=== PATIENT | male | born 1960 | race Caucasian/White ===

== ENCOUNTER 2016-09-01 10:39 | Inpatient (IN) ==
[2016-09-01] MEDS ORDERED: ASPIRIN PO STA (11:04)
--- NOTE | 2016-09-01 11:36 | EKG Report ---
Test Performed on : 09/01/2016 10:46:47 AM Test Reason : cp Blood Pressure : / mmHG Vent. Rate : 110 BPM Atrial Rate : 110 BPM P-R Int : 130 ms QRS Dur : 082 ms QT Int : 326 ms P-R-T Axes : 054 057 -19 degrees QTc Int : 441 ms Sinus tachycardia. Possible Left atrial enlargement T wave abnormality, consider inferior ischemia Abnormal ECG When compared with ECG of 22-OCT-2015 07:28, ST no longer elevated in Anterior leads Inverted T waves have replaced nonspecific T wave abnormality in Inferior leads T wave amplitude has decreased in Anterior leads Unconfirmed Result
[2016-09-01 12:09] LABS: MANUAL DIFF NEEDED? NO
--- NOTE | 2016-09-01 12:09 | Diag Imaging Result Document ---
PROCEDURE NAME: CHEST-PORTABLE - 09/01/2016 PORTABLE CHEST: COMPARISON: 03/15/2011. FINDINGS: Sternal wires are present. There is increased density along the left heart border. The right lung is well expanded and clear. The vessels are not distended. No pleural effusion is identified. IMPRESSION: I believe there is an infiltrate in the lingular segment of the left upper lobe.
[2016-09-01 12:35] LABS: AGAP 14; ALBUMIN 3.9 g/dL (3.5-5.0); ALKALINE PHOSPHATASE 76 U/L (32-122); BUN 19 mg/dL (8-22); CALCIUM 9.3 mg/dL (8.8-10.2); CHLORIDE 105 mmol/L (98-107); CK PROFILE 50 U/L (24-204); COSMO 281; GOT 31 U/L (10-34); GPT 28 U/L (10-44); MAGNESIUM 2.1 mg/dL (1.5-2.7); SODIUM 140 mmol/L (136-145); TCO2 21 mmol/L (25-35); TOTAL BILIRUBIN 0.23 mg/dL (0.20-1.00); TOTAL PROTEIN 7.2 g/dL (6.3-8.3)
[2016-09-01 12:42] LABS: BASO% 0.4 % (0.0-0.8); EOS# 0.29 X1000 (0.0-0.7); EOS% 3.2 % (0.0-10.0); HEMATOCRIT 41.5 % (42.0-52.0); HEMOGLOBIN 14.1 g/dL (14.0-18.0); LYMPH# 4.14 X1000 (1.2-3.4); LYMPH% 45.6 % (20.5-51.1); MCV 94.1 FL (81-99); MONO# 1.11 X1000 (0.11-0.59); MONO% 12.2 % (1.7-9.3); MPV 10.1 FL (7.4-10.4); NEUT% 38.6 % (42.2-75.2); PLT 289 X1000 (130-400); RBC 4.41 XMIL (4.7-6.1)
[2016-09-01] MEDS ORDERED: LEVAQUIN PO ONE (13:24)
[2016-09-01] MEDS ORDERED: ROCEPHIN 2 GM/NS 2 GM/50 ML IVPB IV ONE (13:24)
[2016-09-01 14:30] LABS: INR 1.02; PROTIME 10.7 Seconds (9.2-11.7); PTT 25.9 Seconds (22.0-36.0)
[2016-09-01] MEDS ORDERED: LABETALOL IV ONE (15:51)
[2016-09-01] MEDS ORDERED: LABETALOL ONE (15:52)
--- NOTE | 2016-09-01 16:33 | PROVIDER DOCUMENTATION ---
This chart was entered by Darrin Marino Scribe, acting as scribe for Shelton Garner MD. HPI-Chest Pain - General Chief Complaint: Chest Pain Stated Complaint: CHEST HEAVINESS,SOB Time Seen by Provider: 09/01/16 10:45 Source: patient Allergies/Adverse Reactions: Patient Allergies Allergy/AdvReac Type Severity Reaction Status Date / Time pregabalin [From Lyrica] AdvReac Intermediate Unknown Verified 09/01/16 11:07 Home Medications: Home Medication List Medication Instructions Recorded Confirmed Last Taken Type Alprazolam [Xanax] 1 mg PO 3-4XDAY PRN PRN 01/20/12 09/01/16 08/31/16 22:00 History 1mg Oxycodone/APAP 10 mg/325 mg 10 mg PO Q6H PRN PRN 01/20/12 09/01/16 09/01/16 10: 30 History [Percocet-10] 10 MG Tizanidine HCl [Zanaflex] 4 mg PO BID 09/18/14 09/01/16 09/01/16 06:30 History 4 MG Aspirin 81 mg PO DAILY 10/22/15 09/01/16 08/25/16 History 81 mg Docusate Sodium [Colace] 100 mg PO BID 02/27/16 09/01/16 09/01/16 06:30 History 100 MG Metoprolol Tartrate 25 mg PO BID 02/27/16 09/01/16 09/01/16 06:30 History 25 MG Tamsulosin [Flomax] 0.4 mg PO QHS 02/27/16 09/01/16 09/01/16 06:30 History 0.4 MG - History of Present Illness-CP Nature of Presenting Problem: patient is a 55 y/o M that presents to the ER with chest pain. Patient's symptoms began 3 days ago in which he describes pressure type feeling. He has shortness of breath with it but denies N/V, diaphoresis, or back pain. Symptoms are improving today. Had by-pass and heart valve replacement since 2015. patient had cervical spine injections last week and stopped ASA due to surgeon request. Location: reports: central Chest Pain Radiation: reports: no radiation Quality of Pain: reports: tightness Severity in ED: moderate Onset/Duration: abrupt, 3 days ago Timing: still present, improving Context/Activities at Onset: reports: none Modifying Factors: improves with: nothing Associated Symptoms: reports: shortness of breath. denies: abdominal pain, back pain, diaphoresis, dizziness, fever/chills, nausea, vomiting Aspirin Treatment Today: 325 mg x 1, provided by ED Prior Chest Pain/Cardiac Workup: reports: other (last december had bypass and heart valve replacement) Similar Symptoms Previously?: Yes Recently Seen Here or By Another Healthcare Provider: No Review of Systems - Adult - REVIEW OF SYSTEMS - ADULT Constitutional: denies: chills, fever Eyes: reports: no symptoms reported Ears, Nose, Mouth & Throat: reports: no symptoms reported Cardiovascular: reports: chest pain. denies: palpitations, syncope Respiratory: reports: shortness of breath. denies: cough, wheezing Gastrointestinal: denies: abdominal pain, diarrhea, nausea, vomiting Genitourinary: reports: no symptoms reported Musculoskeletal: denies: joint pain, joint swelling, muscle aches Integumentary: reports: no symptoms reported Neurological: denies: dizziness/vertigo, headache/migraines, seizure, syncope Psychiatric: reports: no symptoms reported Endocrine: reports: no symptoms reported Hematologic/Lymphatic: reports: no symptoms reported Allergic/Immunologic: reports: no symptoms reported All Other Systems: Reviewed and Negative Past History - Adult - PAST MEDICAL HISTORY-ADULT Review of Records: reports: Old Records Reviewed, Nursing Assessment Review, Medications Reviewed Cardiovascular: reports: CAD, HTN, heart valve problem Musculoskeletal: reports: chronic pain Psychiatric: reports: anxiety Endocrine/Immune: reports: Lymphoma (Hodgkins ( 80s)) - PRIOR SURGERIES/PROCEDURES Surgical/Procedure History: reports: CABG, cholecystectomy, bowel surgery ( colon resection) - IMMUNIZATION STATUS Childhood Immunizations: See Nurse Assessment Flu Vaccine: See Nurse Assessment - SOCIAL HISTORY Smoking: non-smoker Living Situation: family Physical Exam-General - PHYSICAL EXAM-ADULT Initial Vital Signs Reviewed: Yes - CONSTITUTIONAL General Appearance: alert, no apparent distress - EYES Eyes: PERRL/EOMI, pink conjunctivae - HEAD, EARS, NOSE, MOUTH & THROAT HENMT: normocephalic/atraumatic, moist mucous membranes, normal ENT inspection - NECK Neck: full range of motion, normal inspection - RESPIRATORY Respiratory: lungs clear, normal breath sounds, no respiratory distress, no accessory muscle use - CARDIOVASCULAR Cardiovascular: no gallop, no JVD, tachycardia - GASTROINTESTINAL (ABDOMEN) Abdominal Exam: normal bowel sounds, non tender, soft, no organomegaly, no pulsatile mass - MUSCULOSKELETAL Extremity: normal range of motion, normal inspection, no pedal edema, no calf tenderness, normal capillary refill - SKIN Integumentary: normal color, warm/dry - NEUROLOGIC Neurologic: grossly normal, no motor/sensory deficits - PSYCHIATRIC Psych/Mental Status: normal mood/affect, normal thought content, normal thought process, oriented x 3 Progress - PLAN OF CARE/RESULTS Progress/Plan/Lab Results: Vital Signs - 8 hr 09/01/16 10:55 09/01/16 15:28 09/01/16 15:50 Temperature 97.5 F L 98.4 F Pulse Rate 110 H 101 H Respiratory Rate 18 16 Blood Pressure 151/85 180/98 189/116 O2 Sat by Pulse Oximetry 97 97 Laboratory Results - last 24 hr 09/01/16 09/01/16 09/01/16 11:46 11:46 11:46 WBC 9.08 RBC 4.41 L Hgb 14.1 Hct 41.5 L MCV 94.1 MCH 32.0 H MCHC 34.0 RDW Std Deviation 15.7 H Plt Count 289 MPV 10.1 Neut % (Auto) 38.6 L Lymph % (Auto) 45.6 Tarrant % (Auto) 12.2 H Eos % (Auto) 3.2 Baso % (Auto) 0.4 Neut # (Auto) 3.50 Lymph # (Auto) 4.14 H Tarrant # (Auto) 1.11 H Eos # (Auto) 0.29 Baso # (Auto) 0.04 PT INR PTT (Actin FS) D-Dimer Sodium 140 Potassium 5.0 Chloride 105 Carbon Dioxide 21 L Anion Gap 14 BUN 19 Creatinine 1.0 Estimated GFR/1.73 m2 > 60 BUN/Creatinine Ratio 19 Glucose 91 Calculated Osmolality 281 Calcium 9.3 Magnesium 2.1 Total Bilirubin 0.23 AST 31 ALT 28 Alkaline Phosphatase 76 Creatine Kinase 50 Troponin T Jxm-S-Ykixkxyoxxh Pept 136 Total Protein 7.2 Albumin 3.9 Globulin 3.3 Albumin/Globulin Ratio 1.2 09/01/16 09/01/16 09/01/16 11:46 13:30 13:30 WBC RBC Hgb Hct MCV MCH MCHC RDW Std Deviation Plt Count MPV Neut % (Auto) Lymph % (Auto) Tarrant % (Auto) Eos % (Auto) Baso % (Auto) Neut # (Auto) Lymph # (Auto) T[place] # (Auto) Eos # (Auto) Baso # (Auto) PT 10.7 INR 1.02 PTT (Actin FS) 25.9 D-Dimer 0.94 H Sodium Potassium Chloride Carbon Dioxide Anion Gap BUN Creatinine Estimated GFR/1.73 m2 BUN/Creatinine Ratio Glucose Calculated Osmolality Calcium Magnesium Total Bilirubin AST ALT Alkaline Phosphatase Creatine Kinase Troponin T < 0.010 Epd-H-Glcxwkodblf Pept Total Protein Albumin Globulin Albumin/Globulin Ratio 09/01/16 09/01/16 14:39 14:39 WBC RBC Hgb Hct MCV MCH MCHC RDW Std Deviation Plt Count MPV Neut % (Auto) Lymph % (Auto) Tarrant % (Auto) Eos % (Auto) Baso % (Auto) Neut # (Auto) Lymph # (Auto) Tarrant # (Auto) Eos # (Auto) Baso # (Auto) PT INR PTT (Actin FS) D-Dimer Sodium Potassium Chloride Carbon Dioxide Anion Gap BUN Creatinine Estimated GFR/1.73 m2 BUN/Creatinine Ratio Glucose Calculated Osmolality Calcium Magnesium Total Bilirubin AST ALT Alkaline Phosphatase Creatine Kinase 45 Troponin T < 0.010 Tto-W-Kxqfazoszrj Pept Total Protein Albumin Globulin Albumin/Globulin Ratio Orders Category Date Time Status Cardiac Monitoring DIRECTED Care 09/01/16 11:04 Active Saline Loc NOW Care 09/01/16 11:04 Active CHEST-PORTABLE [RAD] Stat Exams 09/01/16 11:04 Completed CBC WITH ELECTRONIC DIFF [HEME] Stat Lab 09/01/16 11:46 Completed CK PROFILE [SP CHEM] Stat Lab 09/01/16 11:46 Completed CK PROFILE [SP CHEM] Stat Lab 09/01/16 14:39 Completed COMPREHENSIVE METABOLIC PANEL [CHEM] Stat Lab 09/01/16 11:46 Completed D-DIMER [CHEM] Stat Lab 09/01/16 13:30 Completed MAGNESIUM [CHEM] Stat Lab 09/01/16 11:46 Completed PRO B-NATRIURETIC PEPTIDE Stat Lab 09/01/16 11:46 Completed PROTIME WITH INR [COAG] Stat Lab 09/01/16 13:30 Completed PTT [COAG] Stat Lab 09/01/16 13:30 Completed TROPONIN T Stat Lab 09/01/16 11:46 Completed TROPONIN T Stat Lab 09/01/16 14:39 Completed Aspirin Med 09/01/16 11:04 Discontinued 325 mg PO STAT STA CefTRIAXONE 2 GM/NS [Rocephin 2 gm/Ns] Med 09/01/16 13:24 Discontinued 2 gm in 50 ml IV NOW Labetalol Med 09/01/16 15:52 Discontinued 20 mg .ROUTE .STK-MED ONE Labetalol Med 09/01/16 15:51 Discontinued 20 mg IV NOW ONE Levofloxacin [Levaquin] Med 09/01/16 13:24 Discontinued 750 mg PO NOW ONE EKG [EKG] Stat Ther 09/01/16 10:43 Draft Orders Category Date Time Status Cardiac Monitoring DIRECTED Care 09/01/16 11:04 Active Saline Loc NOW Care 09/01/16 11:04 Active CHEST-PORTABLE [RAD] Stat Exams 09/01/16 11:04 Ordered CBC WITH ELECTRONIC DIFF [HEME] Stat Lab 09/01/16 11:04 Uncollected CK PROFILE [SP CHEM] Stat Lab 09/01/16 11:04 Uncollected COMPREHENSIVE METABOLIC PANEL [CHEM] Stat Lab 09/01/16 11:04 Uncollected D-DIMER [CHEM] Stat Lab 09/01/16 11:04 Uncollected MAGNESIUM [CHEM] Stat Lab 09/01/16 11:04 Uncollected PRO B-NATRIURETIC PEPTIDE Stat Lab 09/01/16 11:04 Uncollected PROTIME WITH INR [COAG] Stat Lab 09/01/16 11:04 Uncollected PTT [COAG] Stat Lab 09/01/16 11:04 Uncollected TROPONIN T Stat Lab 09/01/16 11:04 Uncollected Aspirin Med 09/01/16 11:04 Discontinued 325 mg PO STAT STA EKG [EKG] Stat Ther 09/01/16 10:43 Ordered ASA will not be given due to patient having recent procedure on neck 1324-second set of cardiacs ordered, rocephin order Orders Category Date Time Status Cardiac Monitoring DIRECTED Care 09/01/16 11:04 Active Saline Loc NOW Care 09/01/16 11:04 Active CHEST-PORTABLE [RAD] Stat Exams 09/01/16 11:04 Completed CBC WITH ELECTRONIC DIFF [HEME] Stat Lab 09/01/16 11:46 Completed CK PROFILE [SP CHEM] Stat Lab 09/01/16 11:46 Completed CK PROFILE [SP CHEM] Stat Lab 09/01/16 14:39 Completed COMPREHENSIVE METABOLIC PANEL [CHEM] Stat Lab 09/01/16 11:46 Completed D-DIMER [CHEM] Stat Lab 09/01/16 13:30 Completed MAGNESIUM [CHEM] Stat Lab 09/01/16 11:46 Completed PRO B-NATRIURETIC PEPTIDE Stat Lab 09/01/16 11:46 Completed PROTIME WITH INR [COAG] Stat Lab 09/01/16 13:30 Completed PTT [COAG] Stat Lab 09/01/16 13:30 Completed TROPONIN T Stat Lab 09/01/16 11:46 Completed TROPONIN T Stat Lab 09/01/16 14:39 Completed Aspirin Med 09/01/16 11:04 Discontinued 325 mg PO STAT STA CefTRIAXONE 2 GM/NS [Rocephin 2 gm/Ns] Med 09/01/16 13:24 Discontinued 2 gm in 50 ml IV NOW Levofloxacin [Levaquin] Med 09/01/16 13:24 Discontinued 750 mg PO NOW ONE EKG [EKG] Stat Ther 09/01/16 10:43 Draft Result Diagrams: 09/01/16 11:46 09/01/16 11:46 - EKG 1 Time of EKG reading by physician:: 10:46 EKG Read and Signed by:: Shelton Garner EKG Interpretation (*Must complete 3 of following elements*): Abnormal Rate: 110 Rhythm: Sinus tachycardia Rueter: normal QRS: normal PA Interval: normal ST Wave: non-specific ST changes - XRAY 1 XRAY Study: Chest Impression: Abnormal XRAY Interpretation: possible infiltrate in the lingular segment of the [place] - CONSULTS/PCP/HOSPITALIST Notification #1 *Consult/PCP/Hospitalist*: Time Discussed: 16:26 Consult Disposition: Admit Departure - Departure Time of Disposition Decision: 16:21 DIAGNOSIS: Chest pain in adult, Lingular pneumonia Disposition: ADMITTED INPATIENT 09 Certified Medical Emergency: Emergent Condition: Stable Referrals and Follow-Ups: Reynaldo Salas MD [Primary Care Provider] - This chart was documented by the indicated scribe, (Darrin Marino Scribe) and accurately reflects the services I performed and decisions made by , Shelton Garner MD, as attested by the provider's signature.
[2016-09-01] MEDS ORDERED: XANAX PO PRN ×2 (20:51→22:36)
[2016-09-01] MEDS ORDERED: PERCOCET-10 PO PRN (20:51)
[2016-09-01] MEDS ORDERED: ZANAFLEX PO SCH (21:00)
[2016-09-01] MEDS ORDERED: FLOMAX PO SCH (21:00)
[2016-09-01] MEDS ORDERED: COLACE PO SCH (21:00)
[2016-09-01] MEDS ORDERED: LOPRESSOR PO SCH (21:00)
[2016-09-01] MEDS ORDERED: XARELTO PO ONE (21:04)
[2016-09-01] MEDS: ZANAFLEX PO SCH (22:54)
[2016-09-01] MEDS: PRAVACHOL PO SCH ×2 (22:54→23:15)
[2016-09-01] MEDS: FLOMAX PO SCH (22:55)
[2016-09-01] MEDS: COLACE PO SCH (22:55)
[2016-09-01] MEDS: LOPRESSOR PO SCH (22:55)
[2016-09-01] MEDS: PERCOCET-10 PO PRN (23:15)
[2016-09-02 06:08] LABS: MANUAL DIFF NEEDED? NO
[2016-09-02 06:15] LABS: BASO% 0.6 % (0.0-0.8); EOS# 0.32 X1000 (0.0-0.7); EOS% 4.1 % (0.0-10.0); HEMATOCRIT 39.3 % (42.0-52.0); HEMOGLOBIN 13.3 g/dL (14.0-18.0); IMM GRAN# 0.01 X1000 (0.0-0.04); IMM GRAN% 0.1 % (0.0-0.5); LYMPH# 3.33 X1000 (1.2-3.4); LYMPH% 42.9 % (20.5-51.1); MCH 31.4 PG (27-31); MCHC 33.8 g/dL (33-37); MCV 92.9 FL (81-99); MONO# 1.15 X1000 (0.11-0.59); MONO% 14.8 % (1.7-9.3); MPV 9.7 FL (7.4-10.4); NEUT% 37.5 % (42.2-75.2); PLT 277 X1000 (130-400); RBC 4.23 XMIL (4.7-6.1)
[2016-09-02 06:44] LABS: AGAP 11; BUN 17 mg/dL (8-22); CALCIUM 9.1 mg/dL (8.8-10.2); CHLORIDE 103 mmol/L (98-107); COSMO 275; POTASSIUM 3.7 mmol/L (3.5-5.1); SODIUM 137 mmol/L (136-145); TCO2 24 mmol/L (25-35)
[2016-09-02] MEDS: MORPHINE IV PRN ×2 (07:37→13:53)
--- NOTE | 2016-09-02 08:25 | Diag Imaging Result Document ---
PROCEDURE NAME: ANGIOGRAM/PULMONARY ARTERIES - 09/01/2016 CT ANGIOGRAM OF PULMONARY ARTERIES WITH CONTRAST: Exam performed with intravenous contrast. A dose-reduction protocol was used. Axial and coronal images are obtained. COMPARISON: No comparison exam. FINDINGS: There are filling defects in bilateral pulmonary arteries which are compatible with pulmonary emboli. These are more extensive on the right than on the left. There is no indication of aortic dissection. There is subsegmental atelectasis or scarring at the left lingula and left base. There is no consolidation, pleural effusion, or pneumothorax identified. There is enlargement of the thyroid noted, most prominently the left thyroid lobe. There is a 2.1 cm left adrenal nodule noted which is stable compared to 07/07/2010, compatible with adenoma. IMPRESSION: 1. Bilateral pulmonary emboli, more extensive on the right than on the left. 2. Enlarged thyroid noted. Preliminary results were provided at 6:36 p.m. on 09/01/2016.
[2016-09-02] MEDS: COLACE PO SCH ×2 (08:29→21:06)
[2016-09-02] MEDS: XARELTO PO SCH ×2 (08:29→21:07)
[2016-09-02] MEDS: LOPRESSOR PO SCH ×2 (08:29→21:06)
[2016-09-02] MEDS: ZANAFLEX PO SCH ×2 (08:29→21:06)
[2016-09-02] MEDS: ASPIRIN PO SCH (08:29)
--- NOTE | 2016-09-02 08:36 | HISTORY AND PHYSICAL ---
PRIMARY CARE PROVIDER: Reynaldo Salas MD BOAT OUTFITTING SUPERVISOR: Ventura Toscano MD CHIEF COMPLAINT: Chest pain. HISTORY OF PRESENT ILLNESS: This is a 55-year-old male who has a past medical history of hypertension and hyperlipidemia. He has had coronary artery bypass grafting, as well as aortic valve replacement. He comes into the ER tonight complaining of 1 week of chest pain, which is worse when leaning forward. Tuesday of this week he began having increased shortness of breath. He had an episode during that day where he felt as if he simply could not catch his breath. Today the chest pain when he leaned forward became great enough that he came into the emergency room. He denied any radiation, diaphoresis, dizziness, fever, chills, abdominal or back pain, or nausea or vomiting associated with the chest pain. He said that it felt as a heaviness. A chest x-ray was obtained, which showed a left upper lobe in the lingular segment. On his laboratory data, a D- dimer came back slightly elevated, so a CTA of his chest was obtained, which showed bilateral pulmonary embolisms, greater on the right than the left. He had recently been told to stop taking his aspirin daily because of a neck procedure that he had had by the surgeon. He will be admitted to [facility] for further evaluation and treatment. PAST MEDICAL HISTORY: 1. Hypertension. 2. Hyperlipidemia. 3. Hodgkin lymphoma, for which he received chemotherapy and radiation. 4. Anxiety. 5. Chronic back and neck pain. PREVIOUS SURGICAL HISTORY: 1. C-spine fusion. 2. Aortic valve replacement. 3. CABG this last November. SOCIAL HISTORY: He is disabled now. He did work at the [employer] in [place]. He denies tobacco, alcohol, or illicit drug use or abuse. He lives at home with his . FAMILY HISTORY: Father had coronary artery disease and Alzheimer's and . Sister had breast cancer, but is still alive and doing well. ALLERGIES: Pregabalin. HOME MEDICATIONS: 1. Percocet 10 p.o. every 6 hours p.r.n. 2. Xanax 1 mg p.o. 3 to 4 times a day as needed. 3. Xanax 4 mg p.o. b.i.d. 4. Aspirin 81 mg p.o. daily. 5. Flomax 0.4 mg p.o. every night at bedtime. 6. Metoprolol 25 mg p.o. b.i.d. 7. Colace 100 mg p.o. b.i.d. 8. Pravastatin sodium 40 mg 1 p.o. every night at bedtime. REVIEW OF SYSTEMS: A 14-point review of systems was conducted with the patient. Pertinent positives are listed above in the HPI. All other systems were reviewed and found to be negative. PHYSICAL EXAMINATION: VITAL SIGNS: Temperature 97.5 degrees, pulse 93, respirations 14, blood pressure 161/88, and oxygen saturation 100% on room air. GENERAL: A very pleasant 55-year-old male, lying in the ER stretcher. at bedside. Alert and oriented x3, in no acute distress. HEENT: Head is atraumatic, normocephalic. Pupils equal, round, reactive to light. Extraocular eye movement intact. Sclerae are anicteric. Conjunctivae are pink. Oral mucosa is moist. NECK: Supple. No JVD. No thyromegaly. Trachea midline. No cervical lymphadenopathy. CARDIAC: S1 and S2 appreciated. Regular rhythm. No murmurs, gallops, rubs. LUNGS: Decreased. Somewhat poor inspiratory effort, likely related to pain, was noted. No rhonchi, wheezes, rales. Symmetrical rise and fall with respirations. ABDOMEN: Soft, nondistended, nontender. Bowel sounds present in all 4 quadrants. Normoactive. No pulsatile mass. No organomegaly. EXTREMITIES: No clubbing, cyanosis, or edema. There are 2+ pedal pulses bilaterally. GENITOURINARY: The patient voids, otherwise deferred. NEUROLOGICAL: Alert and oriented x3. Cranial nerves 2 through 12 grossly intact. SKIN: Warm, dry, intact. No acute lesions or rash. DIAGNOSTIC DATA: Chest x-ray showed a left upper lobe pneumonia. CTA of the thorax showed bilateral pulmonary emboli. LABORATORY DATA: WBC 9.08, hemoglobin 14.1, hematocrit 41.5, platelet count 289,000. Coagulation studies within normal limits. D-dimer 0.94. Sodium 140, potassium 5, chloride 105, carbon dioxide 21, BUN 19, creatinine 1, glucose 91. CK 45, troponin less than 0.01. ASSESSMENT AND PLAN: 1. Bilateral pulmonary emboli. We will give Xarelto 15 mg now and continue Xarelto 15 mg by mouth twice daily. 2. Left upper lobe pneumonia. The patient was given Levaquin and Rocephin in the emergency room. We will continue Levaquin 750 by mouth daily. 3. Chronic pain. Continue the patient's oxycodone. We will add morphine 2 mg every 4 hours intravenously as needed for breakthrough pain. 4. Hypertension. Continue home medications. 5. Hyperlipidemia. Continue statin. 6. Anxiety. Continue the patient's Xanax. 7. Further recommendations per the patient's clinical course. Dictated by DOMINIQUE Theodore for Selvin Dickey MD cc: DOMINIQUE Theodore MD Luis N. Villanueva, MD Stephen A. Branning, MD
[2016-09-02] MEDS ORDERED: PNEUMOVAX 23 IM ONE (09:00)
[2016-09-02] MEDS ORDERED: ASPIRIN PO SCH (09:00)
[2016-09-02] MEDS: LEVAQUIN PO SCH (13:48)
--- NOTE | 2016-09-02 14:50 | PROGRESS NOTE ---
DATE: 09/02/2016 SUBJECTIVE: The patient states that he is breathing well. Chest pain is relieved after morphine. He denies palpitations, syncope, dizziness, shortness of breath. OBJECTIVE: Vital Signs: Blood pressure is 123/76 with a heart rate of 90, respirations are 20, temperature is 98 degrees oral with room air saturations 96% to 100%. Cardiovascular: Regular rate and rhythm. S1 and S2 appreciated. Pulmonary: Breath sounds are clear with no increased work of breathing noted. Gastrointestinal: Abdomen is soft, nontender, nondistended with bowel sounds in all 4 quadrants. Extremities: No clubbing, cyanosis, or edema. He does have pulses palpable x4 with calves nontender. DIAGNOSTICS: Labs: WBC is 7.7 with hemoglobin 13.3, hematocrit 39.3, and platelets of 277. Sodium is 137, potassium 3.7, BUN 17, creatinine 1, with a glucose of 95. ASSESSMENT AND PLAN: 1. Bilateral pulmonary emboli. We will continue Xarelto. We did check with the patient's insurance carrier. He will be able to afford his Xarelto. 2. Left upper lobe pneumonia. We will continue Levaquin daily orally. 3. Chronic pain. We will continue the patient's home pain medications. 4. Hypertension. Blood pressures are running in the 120s-150s/60s-70s. We will continue with his current regimen. 5. Hyperlipidemia. Continue his statin. 6. Anxiety. We will continue his home Xanax. 7. For deep vein thrombosis prophylaxis, he is on Xarelto. 8. For gastrointestinal prophylaxis, he is on Prilosec. Dictated by DOMINIQUE Simon for Filipe James MD cc: DOMINIQUE Simon MD
[2016-09-02] MEDS: PRAVACHOL PO SCH (21:05)
[2016-09-02] MEDS: FLOMAX PO SCH (21:06)
[2016-09-02] MEDS: PERCOCET-10 PO PRN (21:08)
[2016-09-03 03:28] VITALS: BP 127/72
[2016-09-03] MEDS: PERCOCET-10 PO PRN ×2 (06:03→13:47)
[2016-09-03] MEDS ORDERED: PRILOSEC PO SCH (07:00)
[2016-09-03] MEDS: ASPIRIN PO SCH (09:56)
[2016-09-03] MEDS: XARELTO PO SCH (09:56)
[2016-09-03] MEDS: LOPRESSOR PO SCH (09:56)
[2016-09-03] MEDS: ZANAFLEX PO SCH (09:56)
[2016-09-03] MEDS: COLACE PO SCH (09:56)
[2016-09-03] MEDS: LEVAQUIN PO SCH (13:47)
--- NOTE | 2016-09-03 14:55 | PROGRESS NOTE ---
DATE: 09/03/2016 SUBJECTIVE: The patient states he is breathing well. He has no chest pain, palpitations, syncope or dizziness. OBJECTIVE: Vital Signs: Blood pressure 127/72 with a heart rate 81, respirations are 16, temperature is 97.9 degrees with room air saturations of 98%. Cardiovascular: Regular rate and rhythm. S1, S2 appreciated. Pulmonary: Breath sounds are clear. No increased work of breathing noted. Gastrointestinal: Abdomen is soft, nontender, nondistended. Bowel sounds in all 4 quadrants. DIAGNOSTICS: There are no new labs. ASSESSMENT AND PLAN: 1. Bilateral pulmonary emboli. We will continue Xarelto. 2. Left upper lobe pneumonia. We will continue with Levaquin. 3. Chronic pain. We will continue his home medical regimen. 4. Hypertension. Stay with his current regimen. 5. Hyperlipidemia. 6. Anxiety. Dictated by DOMINIQUE Simon for Filipe James MD cc: DOMINIQUE Simon MD
--- NOTE | 2016-09-12 18:22 | DISCHARGE SUMMARY ---
ADMISSION DATE: 09/01/2016 DISCHARGE DATE: 09/03/2016 DISCHARGE DIAGNOSES: 1. Bilateral pulmonary emboli tolerating Xarelto well. 2. Left upper lobe pneumonia improving. 3. Chronic pain. 4. Hypertension. 5. Hyperlipidemia. 6. Chronic anxiety. CONSULTATIONS: None. PROCEDURES: None. BRIEF HOSPITAL COURSE: The patient was admitted to the hospital as noted on the HPI and treated in the usual fashion. He was placed on Lovenox overnight and then transitioned to Xarelto. Thankfully, the Xarelto was affordable due to his insurance. He was also noted to have a left upper lobe pneumonia and was placed on antibiotics. He tolerated this very well. On discharge, patient was awake and alert. He was in no distress. He was able to ambulate in the andrade without any difficulty and therefore he will be discharged home. DISPOSITION: Patient will be discharged home. He will continue Xarelto 15 mg twice a day for 3 weeks and then he will transition over to once a day 20 mg. Follow up with primary care physician in 1 to 2 weeks or sooner if symptoms worsen or return. cc: Filipe James MD
== END 2016-09-03 16:07 | disposition home or self-care (01) ==
LOC: ED 10:39 → SUATTDRO 21:49 → P.MEDSURG 21:49
PROVIDERS: ATTEND Family Medicine

== ENCOUNTER 2019-02-21 10:58 | Inpatient (IN) ==
[2019-02-21] MEDS ORDERED: MORPHINE IV ONE ×2 (11:14→13:57)
[2019-02-21] MEDS ORDERED: ZOFRAN IV ONE (11:14)
[2019-02-21] MEDS ORDERED: NS 1,000 ML IV ONE ×2 (11:14→15:07)
--- NOTE | 2019-02-21 11:18 | PROVIDER DOCUMENTATION ---
HPI-Male Problem - General Chief Complaint: Abdominal Pain Stated Complaint: BLOOD IN URINE, ABD PAIN Time Seen by Provider: 02/21/19 11:04 Source: patient Allergies/Adverse Reactions: Patient Allergies Allergy/AdvReac Type Severity Reaction Status Date / Time pregabalin [From Lyrica] AdvReac Intermediate Unknown Verified 02/15/18 15:43 Home Medications: Home Medication List Medication Instructions Recorded Confirmed Last Taken Type Oxycodone/APAP 10 mg/325 mg 10 mg PO Q6H PRN PRN 01/20/12 02/21/19 09/01/16 10:30 History [Percocet-10] 10 MG Aspirin 81 mg PO DAILY chewtab 09/03/16 02/21/19 Unknown Rx Rivaroxaban [Xarelto] 20 mg PO DAILY #30 tablet 09/03/16 02/21/19 Unknown Rx Metoprolol Succinate E.r. [Toprol 1 tab PO DAILY 02/21/19 02/21/19 Unknown History Xl] - History of Present Illness-Male Nature of Presenting Problem: 58 YOM PRESENTS WITH R FLANK PAIN AND HEMATURIA. BLOOD IN URINE BEGAN LAST TUESDAY, PAIN 2 DAYS AGO. R FLANK RADIATING IN TO GROIN. HX OF STONES. NAUSEA, NO VOMITING Location of Complaint: reports: right flank Radiation: reports: groin Quality of Pain: reports: aching, sharp Severity in ED: reports: moderate Onset/Duration: reports: 5 days ago Timing: reports: still present Context/Activities at Onset: reports: none Urinary Symptoms: reports: hematuria Sexual intercourse history: reports: Single Partner Contraception: reports: none Associated Symptoms: reports: none Associated Symptoms: reports: nausea Similar Symptoms Previously?: Yes Recently seen or treated by another doctor?: No Review of Systems - Adult - REVIEW OF SYSTEMS - ADULT Constitutional: reports: no symptoms reported. denies: see HPI, chills, fever, fatique, night sweats, weight gain, weight loss, other Eyes: reports: no symptoms reported. denies: see HPI, discharge, dry eyes, decreased vision, blurred vision, double vision, eye pain, redness, other Ears, Nose, Mouth & Throat: reports: no symptoms reported. denies: see HPI, ear discharge, ear pain, hearing loss, tinnitus, epistaxis, sinus problem, nose pain, loose teeth, mouth/dental pain, mouth swelling, hoarseness, throat pain, throat swelling, other Cardiovascular: reports: no symptoms reported. denies: see HPI, chest pain, edema, heart murmur, irregular heart rate, orthopnea, palpitations, poor circulation, PND, syncope, other Respiratory: reports: no symptoms reported. denies: see HPI, chronic cough, cough, dyspnea on exertion, excessive sputum production, hemoptysis, pleurisy, shortness of breath, wheezing, other Gastrointestinal: reports: no symptoms reported. denies: see HPI, abdominal pain, hematemesis, constipation, diarrhea, difficulty swallowing, frequent heartburn, nausea, poor appetite, rectal bleeding, vomiting, other Genitourinary: reports: see HPI, flank pain, hematuria. denies: no symptoms reported, dysuria, discharge, frequency, frequent UTI's, hesitency, incontinence, urinary retention, urgency, other Musculoskeletal: reports: no symptoms reported. denies: see HPI, bone pain, back pain, frequent leg cramps, joint pain, joint swelling, muscle aches, muscle weakness, neck pain, other Integumentary: reports: no symptoms reported. denies: see HPI, hives, hair loss, itching, mole changes, nail changes, rash, skin sores/ulcer, skin thickening, other Neurological: reports: no symptoms reported. denies: see HPI, ataxia, dizziness/vertigo, headache/migraines, loss of balance, numbness, paresthesia, seizure, slurred speech, syncope, tremors, other Psychiatric: reports: no symptoms reported. denies: see HPI, anxiety, anti-depressant use, alcohol/drug dependence, depression, emotional problems, insomnia, panic attacks, suicidal thoughts, other Endocrine: reports: no symptoms reported. denies: see HPI, change in skin pigment, excessive sweating, goiter, cold intolerance, heat intolerance, increased hunger, increased thirst, polyuria, other Hematologic/Lymphatic: reports: no symptoms reported. denies: see HPI, blood clots, easy bruising, low blood count, lymphedema, prolonged bleeding, swollen lymph nodes, transfusions, other Allergic/Immunologic: reports: no symptoms reported. denies: see HPI, allergic reactions, allergic rhinitis, asthma, eczema, food allergy, frequent infections, hay fever, hives, positive PPD, urticaria, other Past History - Adult - PAST MEDICAL HISTORY-ADULT Review of Records: reports: Nursing Assessment Review, Social history reviewed & non-contributory. Major Childhood Illnesses: reports: denies history Cardiovascular: reports: CAD, HTN, heart valve problem Respiratory: reports: denies history Gastrointestinal: reports: denies history Obstetrical/Gynecological: reports: denies history Genitourinary: reports: denies history Musculoskeletal: reports: chronic pain Neurological: reports: denies history Psychiatric: reports: anxiety Endocrine/Immune: reports: Lymphoma (Hodgkins ( 80s)) Other Conditions: reports: denies history - PRIOR SURGERIES/PROCEDURES Surgical/Procedure History: reports: CABG, cholecystectomy, bowel surgery (colon resection) - IMMUNIZATION STATUS Childhood Immunizations: See Nurse Assessment Flu Vaccine: See Nurse Assessment - FAMILY HISTORY Family History: reviewed, not pertinent Physical Exam-General - PHYSICAL EXAM-ADULT Initial Vital Signs Reviewed: Yes - CONSTITUTIONAL General Appearance: appears well, alert, no apparent distress - EYES Eyes: PERRL/EOMI, pink conjunctivae - HEAD, EARS, NOSE, MOUTH & THROAT HENMT: normocephalic/atraumatic, moist mucous membranes, normal ENT inspection - NECK Neck: non-tender, full range of motion, supple - RESPIRATORY Respiratory: chest non-tender, lungs clear, normal breath sounds, no pleuratic chest pain, no respiratory distress, no accessory muscle use - CARDIOVASCULAR Cardiovascular: normal peripheral pulses, tachycardia - GASTROINTESTINAL (ABDOMEN) Abdominal Exam: normal bowel sounds, non tender, soft - LYMPHATIC Lymphatic: no adenopathy - MUSCULOSKELETAL Back Exam: normal inspection, no vertebral tenderness, CVA tenderness (R) Extremity: normal range of motion, non-tender, normal gait, normal inspection Peripheral Pulses: radial (R): 2+, radial (L): 2+, dorsalis-pedis (R): 2+, dorsalis-pedis (L): 2+ - SKIN Integumentary: normal color, normal turgor, warm/dry - NEUROLOGIC Neurologic: grossly normal - PSYCHIATRIC Psych/Mental Status: normal mood/affect, oriented x 3 Progress - PLAN OF CARE/RESULTS Progress/Plan/Lab Results: Vital Signs - 8 hr 02/21/19 11:02 Temperature 98 F Pulse Rate 105 H Respiratory Rate 18 Blood Pressure 184/92 O2 Sat by Pulse Oximetry 98 Laboratory Results - last 24 hr 02/21/19 02/21/19 02/21/19 11:15 11:20 11:20 WBC 12.11 H RBC 4.41 L Hgb 13.9 L Hct 41.7 L MCV 94.6 MCH 31.5 H MCHC 33.3 RDW Std Deviation 14.4 Plt Count 320 MPV 10.1 Immature Gran % (Auto) 0.3 Neut % (Auto) 62.3 Lymph % (Auto) 26.3 Bucks % (Auto) 10.6 H Eos % (Auto) 0.3 Baso % (Auto) 0.2 Immature Gran # (Auto) 0.04 Neut # (Auto) 7.54 H Lymph # (Auto) 3.18 Bucks # (Auto) 1.28 H Eos # (Auto) 0.04 Baso # (Auto) 0.03 PT INR PTT (Actin FS) Sodium 139 Potassium 5.0 Chloride 101 Carbon Dioxide 23 L Anion Gap 15 BUN 11 Creatinine 1.2 Estimated GFR/1.73 m2 > 60 BUN/Creatinine Ratio 9 Glucose 109 H Calculated Osmolality 278 Calcium 10.0 Total Bilirubin 0.20 AST 30 ALT 29 Alkaline Phosphatase 73 Total Protein 8.2 Albumin 4.8 Globulin 3.0 Albumin/Globulin Ratio 1.0 Urine Source CLEAN CATCH Urine Color YELLOW Urine Clarity CLEAR Urine pH 5.0 Ur Specific Reading 1.015 Urine Protein TRACE A Urine Ketones TRACE Urine Blood 4+ Urine Nitrite NEGATIVE Urine Bilirubin NEGATIVE Urine Urobilinogen NORMAL Urine Microscopic RBC TNTC A Urine WBC TRACE A Urine Microscopic WBC 10-20 A Ur Epithelial Cells <10 Urine Crystals NONE SEEN Urine Bacteria 1+ Urine Casts NONE SEEN Urine Yeast PRESENT Urine Glucose NEGATIVE 02/21/19 11:20 WBC RBC Hgb Hct MCV MCH MCHC RDW Std Deviation Plt Count MPV Immature Gran % (Auto) Neut % (Auto) Lymph % (Auto) Bucks % (Auto) Eos % (Auto) Baso % (Auto) Immature Gran # (Auto) Neut # (Auto) Lymph # (Auto) Bucks # (Auto) Eos # (Auto) Baso # (Auto) PT 14.5 INR 1.07 PTT (Actin FS) 28.6 Sodium Potassium Chloride Carbon Dioxide Anion Gap BUN Creatinine Estimated GFR/1.73 m2 BUN/Creatinine Ratio Glucose Calculated Osmolality Calcium Total Bilirubin AST ALT Alkaline Phosphatase Total Protein Albumin Globulin Albumin/Globulin Ratio Urine Source Urine Color Urine Clarity Urine pH Ur Specific Reading Urine Protein Urine Ketones Urine Blood Urine Nitrite Urine Bilirubin Urine Urobilinogen Urine Microscopic RBC Urine WBC Urine Microscopic WBC Ur Epithelial Cells Urine Crystals Urine Bacteria Urine Casts Urine Yeast Urine Glucose Orders Category Date Time Status Saline Loc NOW Care 02/21/19 11:[address] RENAL STONE SEARCH [CT] Stat Exams 02/21/19 11:14 Completed CBC WITH ELECTRONIC DIFF [HEME] Stat Lab 02/21/19 11:20 Completed COMPREHENSIVE METABOLIC PANEL [CHEM] Stat Lab 02/21/19 11:20 Completed PROTIME WITH INR [COAG] Stat Lab 02/21/19 11:20 Completed PTT [COAG] Stat Lab 02/21/19 11:20 Completed UA NIMS W/REFLEX CULT PL [URINALYSIS] Stat Lab 02/21/19 11:15 Completed URINE CULTURE [RM] Routine Lab 02/21/19 12:02 Ordered 0.9% Sodium Chloride Inj [Ns] 1,000 ml Med 02/21/19 11:14 Discontinued IV 999 mls/hr Morphine Med 02/21/19 11:14 Discontinued 4 mg IV NOW ONE Ondansetron [Zofran] Med 02/21/19 11:14 Discontinued 4 mg IV NOW ONE Result Diagrams: 02/21/19 11:20 02/21/19 11:20 - CT/MRI 1 CT Study: Kidneys Impression: See EMR Report (CT RENAL STONE SEARCH - 02/21/2019 INDICATION: FLANK PAIN, HEMATURIA COMPARISON: 07/07/2010 FINDINGS: There is some mild linear atelectasis, otherwise the lung bases are clear. Heart size is normal. Stable cholecystectomy clips. There is an obstructing stone in the right UPJ measuring 9.6 x 5.6 mm. There is mild right hydronephrosis. Stable small right renal cyst. Small stone in the right lower pole measuring about 4 mm. No left- sided stones or obstruction. No bowel obstruction or inflammation. There are new surgical resection lines at the sigmoid colon. Urinary bladder demonstrates mild nonspecific wall thickening stable from prior. Prostate and rectum are normal. There are moderate degenerative changes of the spine. No acute or suspicious bony lesion. IMPRESSION: Obstructing right UPJ stone. Mild hydronephrosis. Small right renal stone. This exam was performed using automated exposure control, adjustment of mA or kV according to patient size, and/or use of iterative reconstruction technique Electronically signed by Terrell Russo 02/21/2019 11:59 AM 02/21/19 1159 Interpreting Physician: Terrell Russo MD Dictated Date/Time: 02/21/19 1156 cc: Ayde Ken; None,PCP) - CONSULTS/PCP/HOSPITALIST Notification #1 *Consult/PCP/Hospitalist*: DR NICHOLS Time Discussed: 12:28 Reason/Comments: ADMIT TO [facility] FOR OR TOMORROW AM, HE WILL SEE THIS AFTERNOON Consult Disposition: Admit #2 Consult: DR ORTIZ Time Discussed: 12:30 Consult Disposition: Admit Departure - Departure Date of Disposition Decision: 02/21/19 Time of Disposition Decision: 12:28 DIAGNOSIS: Urinary tract obstruction by kidney stone Disposition: ADMITTED INPATIENT 09 Certified Medical Emergency: Emergent Condition: Stable Referrals and Follow-Ups: None,PCP [Primary Care Provider] - - Critical Care Note This patient required my direct & personal management of CC.: No Attestation - Physician/ GAIL Attestation Patient care was provided by Advanced Practice Provider:: Yes Advanced Practice Provider:: Ayde Ken Advanced Practice Provider documentation review:: The Mid-level provider documentation, treatment plan and medical decision making was reviewed by the physician who agrees with all treatment and medical decision making by the P. The physician spent face to face time with patient:: No Advanced Practice Provider documentation review:: Supervising physician onsite and consulted in the evaluation and care of this patient. The physician did not have a face to face encounter with the patient.
[2019-02-21 11:50] LABS: BASO# 0.03 X1000 (0.0-0.2); BASO% 0.2 % (0.0-0.8); EOS# 0.04 X1000 (0.0-0.7); EOS% 0.3 % (0.0-10.0); HEMATOCRIT 41.7 % (42.0-52.0); HEMOGLOBIN 13.9 g/dL (14.0-18.0); IMM GRAN# 0.04 X1000 (0.0-0.04); IMM GRAN% 0.3 % (0.0-0.5); LYMPH# 3.18 X1000 (1.2-3.4); LYMPH% 26.3 % (20.5-51.1); MCH 31.5 PG (27-31); MCHC 33.3 g/dL (33-37); MCV 94.6 FL (81-99); MONO# 1.28 X1000 (0.11-0.59); MONO% 10.6 % (1.7-9.3); MPV 10.1 FL (7.4-10.4); NEUT# 7.54 X1000 (1.4-6.5); NEUT% 62.3 % (42.2-75.2); PLT 320 X1000 (130-400); RBC 4.41 XMIL (4.7-6.1); RDW 14.4 % (11.5-14.5); WBC 12.11 X1000 (4.8-10.8)
[2019-02-21 11:59] LABS: BILIRUBIN URINE NEGATIVE (NEGATIVE); BLOOD URINE 4+ (NEGATIVE); CLARITY CLEAR (CLEAR); COLOR YELLOW; GLUCOSE URINE NEGATIVE (NEGATIVE); KETONE URINE TRACE mg/dL (NEGATIVE); LEUKOCYTES URINE TRACE (NEGATIVE); NITRITE URINE NEGATIVE (NEGATIVE); PROTEIN URINE TRACE mg/dL (NEGATIVE); SP GRAVITY URINE 1.015; UROBILINOGEN URINE NORMAL
[2019-02-21 12:01] LABS: URINE BACTERIA 1+ /HFP; URINE EPITHELIAL CELLS <10 /HPF (<10); URINE RBC TNTC /HPF (<10); URINE YEAST PRESENT /HPF
--- NOTE | 2019-02-21 12:01 | Diag Imaging Result Doc PS360 ---
CT RENAL STONE SEARCH - 02/21/2019 INDICATION: FLANK PAIN, HEMATURIA COMPARISON: 07/07/2010 FINDINGS: There is some mild linear atelectasis, otherwise the lung bases are clear. Heart size is normal. Stable cholecystectomy clips. There is an obstructing stone in the right UPJ measuring 9.6 x 5.6 mm. There is mild right hydronephrosis. Stable small right renal cyst. Small stone in the right lower pole measuring about 4 mm. No left-sided stones or obstruction. No bowel obstruction or inflammation. There are new surgical resection lines at the sigmoid colon. Urinary bladder demonstrates mild nonspecific wall thickening stable from prior. Prostate and rectum are normal. There are moderate degenerative changes of the spine. No acute or suspicious bony lesion. IMPRESSION: Obstructing right UPJ stone. Mild hydronephrosis. Small right renal stone. This exam was performed using automated exposure control, adjustment of mA or kV according to patient size, and/or use of iterative reconstruction technique Electronically signed by Terrell Russo 02/21/2019 11:59 AM
[2019-02-21 12:02] LABS: INR 1.07; PROTIME 14.5 Seconds (11.0-16.0)
[2019-02-21 12:02] LABS: URINE CAST NONE SEEN /LPF; URINE CRYSTAL NONE SEEN /HPF; URINE SOURCE CLEAN CATCH
[2019-02-21 12:03] LABS: PTT 28.6 Seconds (22.3-41.8)
[2019-02-21 12:07] LABS: AGAP 15; ALBUMIN 4.8 g/dL (3.5-5.0); ALKALINE PHOSPHATASE 73 U/L (32-122); BUN 11 mg/dL (8-22); CHLORIDE 101 mmol/L (98-107); COSMO 278; CREATININE 1.2 mg/dL (0.7-1.2); ESTIMATED GFR > 60; GLUCOSE 109 mg/dL (70-104); GOT 30 U/L (10-34); GPT 29 U/L (10-44); SODIUM 139 mmol/L (136-145); TCO2 23 mmol/L (25-35); TOTAL PROTEIN 8.2 g/dL (6.3-8.3)
[2019-02-21] MEDS: ROCEPHIN 1 GM in NS 50 ML IV SCH (13:13)
--- NOTE | 2019-02-21 14:01 | HISTORY AND PHYSICAL ---
CHIEF COMPLAINT: Abdominal pain. HISTORY OF PRESENT ILLNESS: This is a 58-year-old male with history of CAD status post CABG. He does have a history of nephrolithiasis about 15 years ago, but he was able to pass that stone spontaneously. His pain is increasing today, right lower quadrant, right upper quadrant. He could not stand much more pain, so he came in. He has also been having hematuria. He has noticed urinary flow problems since September, but the last week to week and a half is when he has noticed bloody urine, dark urine. He saw a provider on Tuesday, which would have been the 4th maybe, and was diagnosed with a UTI and placed on Bactrim, but that did not help out very much. He has stopped Xarelto spontaneously himself since , so almost about a week, but he decided to go back on it yesterday and then the hematuria came back essentially. He has had nausea, vomiting. He has had pain. No fevers. Workup in the ER revealed mild leukocytosis, intact renal function, evg-[id number]-count red blood cells and an obstructing right UPJ stone measuring 9.6 x 5.6 meters with right hydronephrosis. The patient will be admitted for symptomatic ureteral obstruction, ureterolithiasis. I discussed the case with Dr. Ortiz, and he is being transferred to the main hospital for definitive therapy with cystoscopy, stent placement, possible stone extraction. PAST MEDICAL HISTORY: 1. History of non-Hodgkin's lymphoma, but that was in 1980. He is status post chemo XRT and he is in remission. 2. CAD status post CABG. 3. Hypertension. 4. PE/DVT 2016. He has been on Xarelto since that time. PAST SURGICAL HISTORY: 1. He has had a CABG 2 vessel and an aortic bioprosthetic bovine valve; that was in 2015. 2. He has had a cholecystectomy. 3. He has had colon resection associated with diverticulitis. FAMILY HISTORY: He denies any major pathologies. SOCIAL HISTORY: No tobacco. Occasional ethanol. He is an occasional wine drinker. ALLERGIES: No known drug allergies, although it is listed pregabalin in his medical record. MEDICATIONS: He is on Xarelto 20, aspirin 81 mg, Toprol-XL 100 daily and Percocet 10'a. REVIEW OF SYSTEMS: He has had about 25 pound weight gain. He also was complaining of lower extremity paresthesias, but other than that, is stable. PHYSICAL EXAMINATION: VITAL SIGNS: Blood pressure is 184/92, heart rate of 105, respiratory rate 18, temperature 98 degrees. CARDIOVASCULAR: Regular rate and rhythm. PULMONARY: Bilateral breath sounds. Clear to auscultation. EYE EXAM: Pupils equal, round, reactive to light. Extraocular movements were intact. Sclerae were anicteric. NECK: Supple. He does have about a 2/6 systolic ejection murmur. GI: Soft, nontender, nondistended. Bowel sounds are positive. A little bit of pain in his right upper and lower quadrant. No rebound. No guarding. MUSCULOSKELETAL EXAM: Was 5/5 in all 4 extremities. NEUROLOGIC: Unremarkable. SKIN EXAM: He did have some bruising along his upper thighs, knees and abdominal area. LABORATORY DATA: White count is 12, hemoglobin and hematocrit 13 and 41, platelets 320. Basic was normal. Urine had ugq-[id number]-cj-count red blood cells, otherwise negative. He has been on Bactrim. He has an obstructing UPJ stone 9.6 x 5.6 with mild hydro. ASSESSMENT: 1. A 58-year-old male with history of nephrolithiasis, coronary artery disease and pulmonary embolus. He will be admitted and transferred to [facility] for definitive therapy. He will continue hydration, pain control. He has been off his Xarelto, but then he took it yesterday. It will be up to Dr. Ortiz if he feels comfortable enough to proceed or wait another 24 hours. He will need to be anticoagulated pretty quickly just because of his history pulmonary embolus, deep vein thrombosis and coronary artery disease. We will continue intravenous hydration. He is on antibiotics empirically and we will follow. 2. Coronary artery disease status post coronary artery bypass graft. Holding anti-platelet therapy. We will continue Toprol and monitor. 3. History of pulmonary embolus/deep vein thrombosis. Again, it looks like he is on long- standing anticoagulation. He denies a history of atrial fibrillation, but again will need to resume when it is safe to do so per surgical recommendations. This was a patient of Dr. Salas, so he is unattached at this point. Refer to Dr. Ortiz. cc: Jono Schulte MD
[2019-02-21] MEDS ORDERED: TYLENOL PO PRN (15:07)
[2019-02-21] MEDS ORDERED: PERCOCET-10 PO PRN (15:07)
[2019-02-21] MEDS ORDERED: MORPHINE IV PRN ×2 (15:07→16:29)
[2019-02-21] MEDS ORDERED: DILAUDID IM ONE (18:15)
[2019-02-21] MEDS: PHENERGAN PO PRN (19:38)
[2019-02-21] MEDS: DEMEROL IV PRN (20:36)
--- NOTE | 2019-02-21 20:46 | CONSULTATION ---
DATE OF CONSULTATION: 02/21/2019 CHIEF COMPLAINT: Right flank pain. HISTORY OF PRESENT ILLNESS: Mr. Stevens is a 58-year-old with history of lymphoma status post chemotherapy and radiation, coronary artery disease status post coronary artery bypass grafting, history of hypertension, history of chronic anticoagulation due to prior pulmonary embolism, who presents for consultation regarding right flank pain. The patient states that he has been having significant right flank pain with associated hematuria. The patient was scheduled to be seen in Urology Clinic today. However, due to pain, he presented to emergency room. The emergency room ordered a CT scan which showed a 9 x 6 mm proximal right ureteral stone with associated hydronephrosis. The patient continues to complain of right flank and lower quadrant pain. The pain radiates into the scrotum. He denies any fevers or chills at home. The patient does state that he has been seeing blood for the last several days. He subsequently stopped taking Xarelto approximately 4 days ago but took another dose yesterday due to hematuria. He states that his hematuria significantly worsened yesterday after starting his Xarelto back. The patient states he has difficulty keeping food down and has had associated nausea. The patient was admitted to the hospital for optimization of pain control in preparation for surgery tomorrow. The patient was evaluated and continued to have significant pain. He received morphine and oxycodone with minimal benefit. The patient states he has had a prior stone approximately 15 years ago that he passed spontaneously. PAST MEDICAL HISTORY: 1. History of non-Hodgkin's lymphoma and was treated with chemotherapy and external radiation. 2. Coronary artery disease status post coronary artery bypass grafting. 3. Hypertension. 4. Pulmonary embolism on chronic anticoagulation with Xarelto. PAST SURGICAL HISTORY: 1. Coronary artery bypass grafting with aortic bovine valve in 2016. 2. Cholecystectomy. 3. Colon resection for diverticulitis. 4. Exploratory laparotomy for lymphoma. FAMILY HISTORY: Denies family history of malignancy. ALLERGIES: Pregabalin. MEDICATIONS: 1. Xarelto. 2. Aspirin. 3. Toprol. 4. Percocet 10. SOCIAL HISTORY: Denies tobacco or illicit drug use. Endorses occasional alcohol use. REVIEW OF SYSTEMS: 12 point review of systems performed with all pertinent positives and negatives as per HPI. PHYSICAL EXAMINATION: Vital Signs: Temperature 98.6, heart rate 88, blood pressure 165/84, oxygen 98% on room air. General: Mild distress, alert and oriented x3. HEENT: Normocephalic, atraumatic. Pupils equal, round, reactive to light. Moist mucous membranes. Neck: Trachea midline. No obvious neck masses. Respiratory: Good respiratory effort without audible wheezing or rales. Cardiovascular: No evidence of lower extremity edema. Regular rate and rhythm. Abdomen: Soft, nondistended, slight tenderness to palpation of the right flank. Genitourinary: No suprapubic tenderness. No CVA tenderness. The patient has tenderness to palpation of the right testicle. Bilateral testicles palpated without masses or asymmetry. The patient has normal phallus with orthotopic meatus. Musculoskeletal: Moving all extremities. Skin: Multiple abdominal incisions. No obvious skin rashes or lesions. Neurologic: Gross motor and sensory intact. LABORATORY DATA: White blood cell count 12.1, hemoglobin 13.9, hematocrit 41.7, platelets 320,000. Sodium 139, potassium 5, chloride 101, bicarbonate 23, BUN 11, creatinine 1.2, glucose 109, calcium 10. Urinalysis shows trace protein, 4+ blood, trace white blood cells. IMAGING: CT of pelvis reviewed which showed a proximal right ureteral stone measuring 9.6 x 6 mm in size causing proximal hydronephrosis. The patient has a smaller right renal stone. ASSESSMENT AND PLAN: Mr. Stevens is a 58-year-old with history of non-Hodgkin's lymphoma and coronary artery bypass grafting after treatment for his lymphoma, hypertension, nephrolithiasis, and chronic anticoagulation due to Xarelto from prior pulmonary embolism. The patient presents to the emergency room complaining of hematuria and flank pain. CT scan was performed which showed a stone present in the proximal right ureter. Images were reviewed and discussed with the patient due to him being on Xarelto that I could not do extracorporeal shock wave lithotripsy and ureteroscopy is not recommended while on Xarelto. I told him I would plan to perform cystoscopy and right ureteral stent tomorrow to bypass the stone in preparation for later treatment of the stone. Risks, benefits, alternatives of the surgical procedure discussed with patient and patient elected to proceed. He will plan to perform the procedure tomorrow. cc: MD KEHINDE Mcfarlane
[2019-02-21] MEDS ORDERED: DILAUDID IV PRN (22:00)
[2019-02-22] MEDS: DEMEROL IV PRN ×5 (00:03→21:14)
[2019-02-22] MEDS: PHENERGAN PO PRN (01:07)
[2019-02-22] MEDS ORDERED: DEMEROL IV ONE (01:49)
[2019-02-22] MEDS: TOPROL XL PO SCH ×2 (07:50→10:41)
--- NOTE | 2019-02-22 09:50 | PROGRESS NOTE ---
DATE: 02/22/2019 SUBJECTIVE: The patient was admitted yesterday from the Emergency Room due to right flank pain. The patient's pain has persisted. He got Dilaudid last night which helped some but he continues to have discomfort this morning. The patient was asleep in bed when I saw him, however, complains of pain after talking further with him. He denies any fevers or chills. OBJECTIVE: Vital Signs: Temperature 98.8 degrees, heart rate 100, blood pressure 181/100, oxygen saturation 100% on room air. General: Mild distress, alert and oriented x3. Respiratory: Respiratory good respiratory effort without audible wheezing or rales. Abdomen: Soft. Slight tenderness to palpation of the right flank. No suprapubic tenderness. Musculoskeletal: Moving all extremities. LABORATORY DATA: Microbiology with no growth of urine culture today. ASSESSMENT AND PLAN: Mr. Stevens is a 58-year-old who presented yesterday to the emergency room complaining of right flank pain. He had a CT scan which showed a 9 mm stone in the proximal ureter. The patient does have prsistent pain today. Recommended NPO and proceed with cystoscopy and right ureteral stent placement due to patient being on Xarelto. We will plan for interval surgery to treat his stone in the future. We will plan to do this later this morning. cc: Kobe Ortiz MD MTDLouisa
[2019-02-22] MEDS ORDERED: DIPRIVAN 1% ONE (11:27)
[2019-02-22] MEDS ORDERED: FENTANYL ONE (11:27)
[2019-02-22] MEDS ORDERED: XYLOCAINE-MPF 2% ONE (11:27)
[2019-02-22] MEDS ORDERED: ROBINUL ONE (11:28)
[2019-02-22] MEDS ORDERED: QUELICIN (DOSE) ONE (11:28)
[2019-02-22] MEDS: ROCEPHIN 1 GM in NS 50 ML IV SCH (12:19)
--- NOTE | 2019-02-22 12:56 | Diag Imaging Result Doc PS360 ---
RETROGRADES 2 OR 3 FILMS - 02/22/2019 INDICATION: RT.FLANK PAIN.RT.RETROGRADE,RT.STENT TECHNIQUE: Right sided ureterogram. Fluoroscopy and multiple views of the abdomen. The exam was performed by the patient's urologist. 16 images were obtained. COMPARISON: CT from 02/21/2019 FINDINGS: The ureterogram appears normal. A right nephroureteral stent was placed in good position. IMPRESSION: No complication. Electronically signed by Terrell Russo 02/22/2019 12:54 PM
[2019-02-22] MEDS: DILAUDID ONE ×4 (13:00→13:15)
[2019-02-22] MEDS: NORVASC PO SCH (14:06)
[2019-02-22] MEDS ORDERED: NORCO-7.5 PO PRN (16:21)
--- NOTE | 2019-02-22 16:55 | PROGRESS NOTE ---
DATE: 02/22/2019 INTERVAL HISTORY: Patient is status post cystoscopy and stent placement this afternoon. Pain is somewhat improved post procedure, but still requiring a fair amount of IV pain medication. Still requiring nausea medication as well, though no vomiting since procedure. No other acute events. No new complaints. REVIEW OF SYSTEMS: Twelve point review of systems negative except as per interval history. VITALS: T-max 98.7 degrees, pulse 91, respirations 18, blood pressure 147/79, O2 saturation 98% on room air. PHYSICAL EXAMINATION: General: No acute distress. Vitals: As above. HEENT: Normocephalic, atraumatic. Moist mucous membranes. Neck: No cervical adenopathy. Cardiovascular: Regular rate and rhythm. No murmurs noted. Pulmonary: Clear to auscultation bilaterally. No wheezing, rales, or rhonchi. Abdomen: Soft, nontender, nondistended. Bowel sounds positive. Extremities: Peripheral pulses intact. No clubbing, cyanosis, or edema. Neurologic: Cranial nerves grossly intact. No focal deficits identified. Psychiatric: Slightly sleepy post procedure, but easily arousable. Oriented x3. Skin: No new rashes or lesions identified. ASSESSMENT AND PLAN: 1. Right ureteropelvic junction stone with mild hydronephrosis. Patient is status post stent placement by urology, Dr. Ortiz. We will try to transition to p.o. pain medicine and as long as that goes well, we will likely discharge in the morning. 2. Hypertension, reasonable control on home Norvasc. 3. Coronary artery disease. Restart home aspirin in the morning. 4. Nausea, vomiting. Still some nausea, but well controlled. No further vomiting. 5. Hematuria, resolved. 6. History of pulmonary embolus in 2017. Holding Xarelto currently. Restart once urologic procedures are done likely in a week or so.
--- NOTE | 2019-02-22 20:10 | OPERATIVE NOTE ---
PROCEDURE DATE: 02/22/2019 PREOPERATIVE DIAGNOSES: 1. Right ureteral stone. 2. Right flank pain. POSTOPERATIVE DIAGNOSES: 1. Right ureteral stone. 2. Right flank pain. PROCEDURE PERFORMED: 1. Cystoscopy with right retrograde pyelogram. 2. Right ureteral stent placement. SURGEON: Kobe Ortiz MD. VP AD SALES WEST: None. COMPLICATIONS: None. BLOOD LOSS: Minimal. DRAINS: A 6 x 26 cm right ureteral stent ANESTHESIA: LMA. SPECIMENS REMOVED: None. OPERATIVE FINDINGS: The patient had a normal urethra. No stricture disease or papillary lesions. No evidence of any diverticulum, cellules, papillary lesions, or bladder stones. On cystoscopy, the patient had bilateral ureteral orifices visualized and slightly lateralized and close to the bladder neck. I was able to perform a right retrograde pyelogram which outlined a normal ureter with some proximal hydronephrosis and what appeared to be a filling defect in the proximal ureter with associated hydroureteronephrosis proximal to this. No obvious stone was seen on scout executive fluoroscopy prior to injection of Omnipaque. The patient underwent uneventful placement of right ureteral stent. INDICATION FOR PROCEDURE: Mr. Stevens is a 58-year-old who presented to the emergency room yesterday complaining of right flank pain and hematuria. The patient was initially scheduled to be seen in the office, however, developed worsening pain and bleeding, and ultimately came into emergency room for evaluation. The patient is on Xarelto and last took yesterday. The patient had a CT scan performed which showed a 9 mm proximal right ureteral stone. The patient had difficult to control pain, was admitted for observation last night. He continues to have pain this morning. I talked with him and recommended surgical stenting due to being on Xarelto, as he has been taking it the day prior to his procedure. Discussed risks, benefits, and alternatives to surgical procedure with the patient and his , and they elected to proceed. DESCRIPTION OF PROCEDURE: After informed consent was obtained, the patient was brought to the operating room, placed on the operating table in supine position. Patient received preoperative antibiotics and underwent LMA placement. He was then positioned to a dorsal supine position, was prepped and draped in usual sterile fashion. A preoperative time-out was performed with all parties in agreement, including anesthesia, surgical, and nursing staff. At which point, I inserted a 21-Upper Sorbian cystourethroscope through the urethra and into the bladder. The patient had a normal urethra. No stricture disease or papillary lesions. The patient's prostate was small with no evidence of obstructing tissues and slightly high necked. Once inside the bladder, the entirety of the bladder was inspected with no evidence of papillary lesions, diverticulum, cellules, or trabeculations. The patient had bilateral ureteral orifices that were slightly lateralized and near the bladder neck. Once the entirety of the bladder was inspected with a 30-degree lens, open- ended catheter was then passed through the scope, flushed of all bubbles, and the right ureteral orifice cannulized and injected with Omnipaque. This outlined a normal distal ureter up to the site of what appeared to be a possible filling defect. No stone was seen on scout executive fluoroscopy, and a slight filling defect was seen within the proximal ureter. The patient had proximal hydroureteronephrosis. Next, a wire was then passed through the open-ended catheter up into the collecting system and seen to coil within the kidney. The open-ended catheter was removed and a 6 x 26 cm stent was then advanced over the wire and up into the kidney with good coil within the kidney endoscopically visualizing the bladder. Good drainage was seen through and around the stent with slightly stagnant urine draining around and through the stent itself. The patient's bladder was cycled multiple times. The patient's bladder was completely decompressed. He was awoken and was taken to recovery room in stable condition. The patient will be monitored overnight and hopefully discharged tomorrow as long as his pain is well controlled. cc: Kobe Ortiz MD [facility]
[2019-02-22] MEDS: ZOFRAN IV PRN (21:14)
[2019-02-22] MEDS: PERIDEX MT SCH (21:15)
[2019-02-23] MEDS: DEMEROL IV PRN ×2 (04:15→09:20)
[2019-02-23] MEDS: ZOFRAN IV PRN (04:15)
[2019-02-23 07:35] VITALS: BP 126/79
--- NOTE | 2019-02-23 08:12 | PROGRESS NOTE ---
DATE: 02/23/2019 SUBJECTIVE: Postoperative day 1 from cystoscopy, right retrograde pyelogram and right ureteral stent placement. The patient states he overall feels better. He states he has less abdominal flank pain. He does describe some pain lower in his pelvis near his bladder. Had some burning with urination. Denies any fevers or chills. PHYSICAL EXAMINATION: Vital Signs: Temperature 98.6, heart rate 101, blood pressure 146/92, oxygen saturation 96% on room air. General: No acute distress. Resting comfortably in bed. Alert and oriented x3. Respiratory: Good respiratory effort without audible wheezing or rales. Abdomen: Soft, nontender, nondistended. : Slight suprapubic tenderness on the right side. No CVA tenderness. ASSESSMENT AND PLAN: Mr. Stevens is a 58-year-old with history of non-Hodgkin's lymphoma, coronary artery disease status post coronary artery bypass grafting, hypertension and history of pulmonary embolism on Xarelto, who presents postoperative day 1 from cystoscopy, right ureteral stent placement. The patient overall is doing well. Continues to have some pain. The patient does have chronic pain at home and is on Percocet. The patient has not gotten any Flomax or bladder spasm medication. We will plan to start that today and see how he does with his bladder spasms because I think that is his major complaint today. Denies any flank or abdominal pain to me during my exam. I told him the bladder spasms were common after stent placement. I told him his retrograde pyelogram yesterday did not show any obvious stones. However, there may have been a slight filling defect in the proximal ureter. I would plan to perform ureteroscopy at a later date for stone removal. Discussed with him and his yesterday. We will continue to monitor from a urologic standpoint. Please call with any questions or concerns. cc: MD KEHINDE Mcfarlane
[2019-02-23] MEDS ORDERED: DITROPAN PO SCH (09:00)
[2019-02-23] MEDS ORDERED: FLOMAX PO SCH (09:00)
[2019-02-23] MEDS: PHENERGAN PO PRN (09:24)
[2019-02-23] MEDS: TOPROL XL PO SCH (09:24)
[2019-02-23] MEDS: NORVASC PO SCH (09:25)
[2019-02-23] MEDS: PERIDEX MT SCH (09:25)
--- NOTE | 2019-02-23 15:20 | DISCHARGE SUMMARY ---
ADMISSION DATE: 02/21/2019 DISCHARGE DATE: 02/23/2019 ADMISSION DIAGNOSIS: 1. Nephrolithiasis. Obstructing UPJ stone with mild hydronephrosis, size is 9.6 x 5.6. 2. History of coronary artery disease with CABG. Anti-platelet therapy being held. 3. History of pulmonary emboli and DVT. Again, anti-platelet being held. DISCHARGE DIAGNOSES: 1. Right UPJ stone with mild hydronephrosis. Stent placed by Dr. Ortiz. 2. Hypertension, controlled. 3. CAD history on aspirin. 4. Nausea, vomiting is controlled. 5. Hematuria, resolved. 6. History of pulmonary embolism 2017. Xarelto is being held. CONSULTATIONS: Dr. Ortiz. SURGERIES AND PROCEDURES: On 02/22/2019 had a cystoscopy with right ureteral stent placement. HOSPITAL COURSE: Mr. Michel Valdez presented to [facility] with complaints of abdominal pain which was mostly in the right lower quadrant and right upper quadrant. Was having blood in his urine and had noticed some urinary flow problems since September, was recently diagnosed with a UTI. Was on Bactrim before coming here. Apparently that did not help. He stopped the Xarelto himself. The hematuria stopped and then he resumed the dose the day prior to coming into the hospital and then the hematuria resumed so he stopped it once again. Continue with nausea, vomiting. ER workup revealed leukocytosis and obstructing right UPJ stone measuring 9.6 x 5.6, with right hydronephrosis. He was admitted and transferred to [facility] where Dr. Ortiz performed the cystoscopy and right UPJ stent placement. OBJECTIVE: Vital Signs: Temperature 98.5 degrees, heart rate 89, respiratory rate 20, blood pressure 126/79, O2 saturation 92% on room air. LABORATORY DATA: White blood cells, he has not had any in 2 days. No labs in 2 days. IMAGING: On 02/21/[address], obstructing right UPJ stone. Mild hydronephrosis and a small right renal stone. DISCHARGE DIET: Regular. ACTIVITY: As tolerated. DISCHARGE MEDICATIONS: 1. Multivitamin 1 tablet p.o. daily. 2. Toprol-XL 100 mg p.o. daily. 3. Ditropan 5 mg p.o. twice daily. 4. Flomax 0.4 mg p.o. daily. 5. Percocet 10 one tablet p.o. every 8 hours p.r.n. DISCHARGE FOLLOWUP: Follow up with Dr. Ortiz. DISCHARGE INSTRUCTIONS: Notify MD for fever of 101 or above, foul smelling urine, pus in the urine, excessive blood in the urine, difficultly urinating, shortness of breath, chest pain, uncontrolled pain or nausea, please call [phone] to obtain a list of primary care physicians accepting new patients. DISCHARGE DISPOSITION: Home. Dictated by DOMINIQUE Blum for Rupert Rockwell MD cc: DOMINIQUE Blum obstructing stone addressed by urology. no CVA or abdominal tenderness on exam. stable for discharge home to follow up with urology and PCP. KEHINDE
== END 2019-02-23 11:10 | disposition home or self-care (01) | DRG 661 ==
LOC: P.ED 10:58 → SUATTDRO 13:35 → 4N 13:52
PROVIDERS: ATTEND Internal Medicine

== ENCOUNTER 2019-02-28 19:49 | Inpatient (IN) ==
--- NOTE | 2019-02-27 14:29 | EKG Report ---
Test Performed on : 02/27/2019 2:10:17 PM Test Reason : PAT Blood Pressure : / mmHG Vent. Rate : 063 BPM Atrial Rate : 063 BPM P-R Int : 128 ms QRS Dur : 086 ms QT Int : 376 ms P-R-T Axes : 051 033 014 degrees QTc Int : 384 ms Normal sinus rhythm. Minimal voltage criteria for LVH, may be normal variant Borderline ECG When compared with ECG of 15-FEB-2018 17:41, No significant change was found Confirmed by Savage ZAVALA, Kurtis Evans ([id number]) on 02/27/2019 11:09:51 PM
[2019-02-27 14:38] LABS: HEMATOCRIT 39.1 % (42.0-52.0); HEMOGLOBIN 12.8 g/dL (14.0-18.0); MCH 31.4 PG (27-31); MCHC 32.7 g/dL (33-37); MCV 95.8 FL (81-99); MPV 9.6 FL (7.4-10.4); RBC 4.08 XMIL (4.7-6.1); RDW 13.6 % (11.5-14.5); WBC 10.2 X1000 (4.8-10.8)
[2019-02-27 15:55] LABS: CREATININE 1.3 mg/dL (0.7-1.2); POTASSIUM 4.3 mmol/L (3.5-5.1)
--- NOTE | 2019-02-28 18:41 | HISTORY AND PHYSICAL ---
CHIEF COMPLAINT: Right proximal ureteral stone with indwelling right double-J stent. HISTORY OF PRESENT ILLNESS: This 58-year-old male has a history of lymphoma status post chemotherapy and radiation, coronary artery disease, status post coronary artery bypass grafting, history of hypertension, history of chronic anticoagulation due to prior pulmonary embolism, who presents for evaluation of right flank pain. His CT scan revealed a 9 x 6 mm proximal right ureteral stone with associated hydronephrosis. He had a double-J stent to bypass the stone. He has been off of his Xarelto for 7 days. He presents for right extracorporeal shockwave lithotripsy and then cystoscopic exam with stent removal. PAST MEDICAL HISTORY: 1. History of non-Hodgkin's lymphoma that was treated with chemo and external radiation. 2. Coronary artery disease, status post coronary artery bypass grafting. 3. Hypertension. 4. Pulmonary embolism on chronic anticoagulation with Xarelto. CURRENT MEDICATIONS: 1. Xarelto which he has been holding for the last 7 days. 2. An aspirin a day. 3. Toprol. 4. Percocet as needed for pain. PAST SURGICAL HISTORY: 1. Coronary artery bypass grafting with aortic bovine valve. 2. Cholecystectomy. 3. Colon resection for diverticulitis. 4. Exploratory laparotomy for lymphoma. SOCIAL HISTORY: No tobacco. Rare alcohol use. ALLERGIES: He is allergic to pregabalin. REVIEW OF SYSTEMS: His 12 point review of systems was all negative except for the pertinent positives noted in the HPI. PHYSICAL EXAMINATION: GENERAL: A normally developed, well-nourished, age apparent, white male, oriented in all ways and cooperative. HEENT: Normal for age. LUNGS: Clear. CARDIOVASCULAR: Regular rate and rhythm. ABDOMEN: Mildly protuberant, soft, nontender. No hepatosplenomegaly or masses. Normal bowel sounds. : The bladder is not palpable. Normal male. Both testes are down and scrotal exam is normal. EXTREMITIES: No clubbing, cyanosis, or edema. NEURO: No focal deficits. IMPRESSION: Right proximal ureteral stone with indwelling right double-J stent. PLAN: Extracorporeal shockwave lithotripsy of the right proximal ureteral stone and then a cystoscopic exam with removal of the double-J stent. The planned procedure, benefits versus risks, and possible complications, including, but not limited to, bleeding, infection, not being able to break up the stone, and need for further stone surgery was discussed. He seems to understand and desires to proceed. cc: Ki Pollock MD
[2019-02-28] MEDS ORDERED: NS 1,000 ML IV ONE (21:46)
[2019-02-28] MEDS ORDERED: TORADOL IV ONE (21:46)
[2019-02-28] MEDS ORDERED: ZOFRAN IV ONE (21:46)
[2019-02-28] MEDS ORDERED: DILAUDID IV ONE (21:46)
[2019-02-28 22:24] LABS: URINE SOURCE CLEAN CATCH
[2019-02-28 22:37] LABS: BASO# 0.06 X1000 (0.0-0.2); BASO% 0.6 % (0.0-0.8); EOS# 0.43 X1000 (0.0-0.7); EOS% 4.1 % (0.0-10.0); HEMOGLOBIN 12.8 g/dL (14.0-18.0); IMM GRAN# 0.02 X1000 (0.0-0.04); IMM GRAN% 0.2 % (0.0-0.5); LYMPH# 3.61 X1000 (1.2-3.4); LYMPH% 34.3 % (20.5-51.1); MCHC 33.7 g/dL (33-37); MONO# 1.31 X1000 (0.11-0.59); MONO% 12.4 % (1.7-9.3); MPV 10.3 FL (7.4-10.4); NEUT# 5.11 X1000 (1.4-6.5); NEUT% 48.4 % (42.2-75.2); PLT 304 X1000 (130-400); RDW 13.6 % (11.5-14.5); WBC 10.54 X1000 (4.8-10.8)
[2019-02-28 22:39] LABS: BILIRUBIN URINE NEGATIVE (NEGATIVE); BLOOD URINE MODERATE (NEGATIVE); COLOR STRAW; GLUCOSE URINE NEGATIVE (NEGATIVE); KETONE URINE NEGATIVE (NEGATIVE); LEUKOCYTES URINE LARGE (NEGATIVE); NITRITE URINE NEGATIVE (NEGATIVE); PROTEIN URINE 30 mg/dL (NEGATIVE); SP GRAVITY URINE 1.009; TURBIDITY URINE HAZY (CLEAR); UR EPITHELIAL CELLS <10 /HPF (<10); URINE BACTERIA NEGATIVE /HPF; URINE RBC TNTC /HPF (<10); UROBILINOGEN URINE NORMAL (NORMAL)
[2019-02-28 22:40] LABS: INR 1.05; PROTIME 13.8 Seconds (11.0-16.0)
[2019-02-28 22:41] LABS: PTT 26.5 Seconds (22.3-41.8)
[2019-02-28 23:21] LABS: AGAP 10; ALB/GLOB RATIO 1.2; ALBUMIN 3.6 g/dL (3.5-5.0); ALKALINE PHOSPHATASE 65 U/L (32-122); BUN 14 mg/dL (8-22); CALCIUM 9.1 mg/dL (8.8-10.2); CHLORIDE 104 mmol/L (98-107); COSMO 274; ESTIMATED GFR > 60; GLUCOSE 93 mg/dL (70-104); GOT 17 U/L (10-34); GPT 20 U/L (10-44); POTASSIUM 4.4 mmol/L (3.5-5.1); SODIUM 137 mmol/L (136-145); TCO2 23 mmol/L (25-35); TOTAL BILIRUBIN 0.17 mg/dL (0.20-1.00); TOTAL PROTEIN 6.5 g/dL (6.3-8.3)
--- NOTE | 2019-02-28 23:44 | PROVIDER DOCUMENTATION ---
This chart was entered by Elda Marina Scribe, acting as scribe for Bernard Wright MD. HPI-Abdominal Pain/GI Problem - General Chief Complaint: Flank Pain Stated Complaint: KIDNEY STONE, PAIN, NAUSEA Time Seen by Provider: 02/28/19 21:19 Source: patient Allergies/Adverse Reactions: Patient Allergies Allergy/AdvReac Type Severity Reaction Status Date / Time pregabalin [From Lyrica] AdvReac Intermediate Unknown Verified 02/27/19 13:49 Home Medications: Home Medication List Medication Instructions Recorded Confirmed Last Taken Type Metoprolol Succinate E.r. [Toprol 25 mg PO DAILY 02/21/19 02/28/19 02/21/19 08:00 History Xl] Multivitamin [Multi-Vitamin Daily] 1 tab PO DAILY 02/21/19 02/28/19 02/21/19 08:00 History Tamsulosin [Flomax] 0.4 mg PO DAILY #30 cap 02/23/19 02/28/19 Unknown Rx Cbd Oil 1 - 3 drp PO PRN PRN 02/27/19 02/28/19 Unknown History Oxycodone HCl/Acetaminophen 10 mg PO PRN PRN 02/27/19 02/28/19 Unknown History [Percocet 10-325 mg Tablet] Rivaroxaban [Xarelto] 20 mg PO DAILY 02/27/19 02/28/19 02/20/19 History Aspirin 81 mg PO DAILY 02/28/19 02/28/19 Unknown History Oxybutynin [Ditropan] 10 mg PO BID 02/28/19 02/28/19 Unknown History - History of Present Illness-ABD Abdominal Pain Onset Location: reports: flank (R sided) Pain Radiation: reports: no radiation Quality of Pain: reports: aching Severity in ED: reports: moderate Onset/Duration: reports: other (2 weeks) Timing: reports: still present Activities at Onset: reports: none Exposure to sick contacts?: No Modifying Factors: improves with: nothing Associated Symptoms: reports: nausea. denies: back/neck pain, chest pain, headaches, vomiting Last BM: unsure Dark Stools Present?: reports: none noticed Rectal Bleeding: reports: none Rectal Pain: reports: none Emesis Description: reports: none Bruising or Bleeding Gums?: No Similar Symptoms Previously?: No Recently seen or treated by another doctor?: No Review of Systems - Adult - REVIEW OF SYSTEMS - ADULT Constitutional: reports: no symptoms reported. denies: chills, fever Eyes: reports: no symptoms reported Ears, Nose, Mouth & Throat: reports: no symptoms reported. denies: ear pain Cardiovascular: reports: no symptoms reported Respiratory: reports: no symptoms reported Gastrointestinal: reports: abdominal pain, nausea. denies: diarrhea, vomiting Genitourinary: reports: no symptoms reported Musculoskeletal: reports: no symptoms reported Integumentary: reports: no symptoms reported Neurological: reports: no symptoms reported. denies: dizziness/vertigo, headache/migraines Psychiatric: reports: no symptoms reported Endocrine: reports: no symptoms reported Hematologic/Lymphatic: reports: no symptoms reported Allergic/Immunologic: reports: no symptoms reported All Other Systems: Reviewed and Negative Past History - Adult - PAST MEDICAL HISTORY-ADULT Review of Records: reports: Old Records Reviewed, Nursing Assessment Review, Medications Reviewed, Social history reviewed & non-contributory. Major Childhood Illnesses: reports: denies history Cardiovascular: reports: CAD, HTN, heart valve problem Respiratory: reports: denies history Gastrointestinal: reports: denies history Obstetrical/Gynecological: reports: denies history Genitourinary: reports: denies history Musculoskeletal: reports: chronic pain Neurological: reports: denies history Psychiatric: reports: anxiety Endocrine/Immune: reports: Lymphoma (Hodgkins ( 80s)) Other Conditions: reports: denies history - PRIOR SURGERIES/PROCEDURES Surgical/Procedure History: reports: CABG, cholecystectomy, bowel surgery (colon resection) - IMMUNIZATION STATUS Childhood Immunizations: See Nurse Assessment Flu Vaccine: See Nurse Assessment - FAMILY HISTORY Family History: reviewed, not pertinent - SOCIAL HISTORY Living Situation: family Physical Exam-General - PHYSICAL EXAM-ADULT Initial Vital Signs Reviewed: No - CONSTITUTIONAL General Appearance: appears well, alert, moderate distress - EYES Eyes: PERRL/EOMI, pink conjunctivae Progress - PLAN OF CARE/RESULTS Progress/Plan/Lab Results: Vital Signs - 8 hr 02/28/19 20:04 Temperature 98.4 F Pulse Rate 93 H Respiratory Rate 16 Blood Pressure 184/104 O2 Sat by Pulse Oximetry 98 Orders Category Date Time Status CBC WITH ELECTRONIC DIFF [HEME] Stat Lab 02/28/19 21:46 Uncollected COMPREHENSIVE METABOLIC PANEL [CHEM] Stat Lab 02/28/19 21:46 Uncollected PROTIME WITH INR [COAG] Stat Lab 02/28/19 21:46 Uncollected PTT [COAG] Stat Lab 02/28/19 21:46 Uncollected URINALYSIS W/POSS RFLX CULT [URINALYSIS] Stat Lab 02/28/19 21:46 Uncollected Hydromorphone [Dilaudid] Med 02/28/19 21:46 Once 1 mg IV NOW ONE Ketorolac [Toradol] Med 02/28/19 21:46 Once 30 mg IV NOW ONE Ns 1000 ml IV Bolus X1 Med 02/28/19 21:46 Ordered 0.9% Sodium Chloride Inj [Ns] 1,000 ml IV 999 mls/hr Ondansetron [Zofran] Med 02/28/19 21:46 Once 4 mg IV NOW ONE Result Diagrams: 02/28/19 22:15 02/28/19 23:00 Departure - Departure Date of Disposition Decision: 02/28/19 Time of Disposition Decision: 23:44 DIAGNOSIS: Kidney stone Disposition: ADMITTED INPATIENT 09 Certified Medical Emergency: Emergent Condition: Stable Referrals and Follow-Ups: Ki Pollock MD [Primary Care Provider] - - Critical Care Note This patient required my direct & personal management of CC.: No Attestation - Physician/ GAIL Attestation Patient care was provided by Advanced Practice Provider:: No The physician spent face to face time with patient:: Yes Advanced Practice Provider documentation review:: Supervising physician onsite and consulted in the evaluation and care of this patient. The physician did have a face to face encounter with the patient. This chart was documented by the indicated scribe, (Elda Marina Scribe) and accurately reflects the services I performed and decisions made by me, Bernard Wright MD, as attested by the provider's signature.
[2019-03-01] MEDS ORDERED: ROCEPHIN 1 GM in NS 50 ML IV SCH (00:15)
[2019-03-01] MEDS ORDERED: NS 1,000 ML IV SCH (01:12)
[2019-03-01] MEDS ORDERED: ZOFRAN IV PRN (01:12)
--- NOTE | 2019-03-01 01:12 | HISTORY AND PHYSICAL ---
CHIEF COMPLAINT: Kidney stones. HISTORY OF PRESENT ILLNESS: This is a 58-year-old male who sees Dr. Pollock outpatient. Has a history of non-Hodgkin's lymphoma status post chemotherapy and radiation, coronary artery disease status post coronary artery bypass grafting, hypertension and chronic anticoagulation due to pulmonary embolism, who presented to the emergency room with pain related to a 9 x 6 mm proximal right urethral stone with associated hydronephrosis. He has been off his Xarelto from what I understand for around 7 days. I believe he will be having a lithotripsy and then cystoscopy with stent removal tomorrow morning with Dr. Pollock. He will be admitted for pain control. PAST MEDICAL HISTORY: See HPI. PREVIOUS SURGICAL HISTORY: Coronary artery bypass grafting with bovine aortic valve replacement, cholecystectomy, colon resection from diverticulitis, exploratory laparotomy for lymphoma. SOCIAL HISTORY: Rare alcohol. No tobacco. No illicit drugs. FAMILY HISTORY: Hypertension and diabetes mellitus in first-degree relatives. ALLERGIES: Pregabalin. HOME MEDICATIONS: CBD oil 1-3 drops p.o. p.r.n., oxycodone 10 mg p.o. p.r.n., aspirin 81 mg p.o. daily, metoprolol 25 mg p.o. daily, multivitamin 1 p.o. daily, Ditropan 10 mg p.o. b.i.d., Xarelto 20 mg p.o. daily which he has been off of for 7 days, Flomax 0.4 mg p.o. daily. REVIEW OF SYSTEMS: Fourteen-point review of systems conducted with the patient. He is having right flank pain into his right lower quadrant of his abdomen extending down into his right testicle. All other systems were reviewed. He denies further complaints other than nausea with no vomiting. PHYSICAL EXAMINATION: VITAL SIGNS: Temperature 98.4, pulse 93, respirations 16, blood pressure 184/104, oxygen saturation 98% on room air. GENERAL: Pleasant 58-year-old male lying in the ER stretcher, answers all questions appropriately. He is alert and oriented times 3. HEENT: Head is atraumatic, normocephalic. Pupils equal, round, reactive to light. Extraocular eye movement is intact. Sclera is anicteric. Conjunctiva is pink. Oral mucosa is moist. NECK: Supple. No JVD. No thyromegaly. Trachea is midline. No cervical lymphadenopathy. CARDIAC: S1, S2 appreciated. A 2/6 systolic ejection murmur noted. No gallops. No rubs. LUNGS: Clear to auscultation bilaterally. No rhonchi, wheezes, rales. Symmetric rise and fall with respirations. ABDOMEN: Protuberant, soft, nondistended. Tender in the right flank/right lower quadrant extending into the groin. Bowel sounds present all 4 quadrants, normoactive. No pulsatile mass. No organomegaly. EXTREMITIES: No clubbing, cyanosis or edema. Two-plus pedal pulses bilaterally. GENITOURINARY: No bladder distention. Patient voids. Otherwise deferred. NEUROLOGICAL: Alert and oriented times 3. No focal motor deficits. Otherwise nonfocal examination. LABORATORY DATA: WBC 10.54. Hemoglobin 12.8. Hematocrit 38. Platelet count 304. Coagulation studies within normal limits. Sodium 137. Potassium 4.4. Chloride 104. Carbon dioxide 23. BUN 14. Creatinine 1. Glucose 93. Urine: Leukocyte esterase positive, 10-20 WBCs, moderate hematuria. ASSESSMENT AND PLAN: 1. Right-sided kidney stone. Consult Dr. Pollock, who plans to do lithotripsy and cystoscopy with stent removal. Pain management overnight with Dilaudid. He was given Toradol in the emergency room. We will continue normal saline. 2. Coronary artery disease status post bypass graft. We will continue beta kenny. 3. History of pulmonary embolism. Patient has been off Xarelto, can restart after patient has procedures completed. Further recommendation per patient clinical course. Dictated by DOMINIQUE Theodore for Tavo Wall MD cc: DOMINIQUE Theodore MD William E. Hughes, MD Independent exam done by me only notable for R flank tenderness without peritonism and 2/6 ESM without any clicks. Resume ASA as soon as possible after procedure. Consider statin therapy post procedure. MTDD
[2019-03-01] MEDS: DILAUDID IV PRN ×2 (02:13→05:19)
[2019-03-01] MEDS ORDERED: DIPRIVAN 1% ONE (05:53)
[2019-03-01] MEDS ORDERED: XYLOCAINE-MPF 2% ONE (05:57)
[2019-03-01] MEDS ORDERED: MANNITOL ONE (05:57)
[2019-03-01] MEDS ORDERED: PEPCID ONE (06:50)
[2019-03-01 07:00] LABS: AGAP 9; BUN 13 mg/dL (8-22); CALCIUM 8.7 mg/dL (8.8-10.2); CHLORIDE 104 mmol/L (98-107); COSMO 275; CREATININE 1.1 mg/dL (0.7-1.2); ESTIMATED GFR > 60; GLUCOSE 93 mg/dL (70-104); POTASSIUM 4.5 mmol/L (3.5-5.1); SODIUM 138 mmol/L (136-145); TCO2 25 mmol/L (25-35)
[2019-03-01] MEDS ORDERED: ROBINUL ONE (07:21)
[2019-03-01] MEDS: DILAUDID ONE ×4 (07:45→07:54)
[2019-03-01] MEDS ORDERED: NORCO-10 ONE (08:04)
[2019-03-01] MEDS ORDERED: NORCO-10 PO PRN (08:45)
[2019-03-01] MEDS ORDERED: NORCO-5 PO PRN (08:45)
[2019-03-01] MEDS ORDERED: NORCO-7.5 PO PRN (08:45)
[2019-03-01] MEDS ORDERED: PHENERGAN IV PRN (08:50)
[2019-03-01] MEDS ORDERED: DITROPAN PO SCH (09:00)
[2019-03-01] MEDS ORDERED: XARELTO PO SCH (09:00)
[2019-03-01] MEDS ORDERED: FLOMAX PO SCH (09:00)
[2019-03-01] MEDS ORDERED: ASPIRIN PO SCH (09:00)
[2019-03-01] MEDS ORDERED: TOPROL XL PO SCH (09:00)
[2019-03-01] MEDS ORDERED: SODIUM CHLORIDE 0.9% INJ PRN (09:00)
[2019-03-01] MEDS ORDERED: THERA M PLUS PO SCH (09:00)
[2019-03-01] MEDS ORDERED: PERIDEX MT SCH (09:00)
[2019-03-01] MEDS ORDERED: FLU VACCINE IM ONE (09:07)
[2019-03-01 10:07] VITALS: BP 128/79
--- NOTE | 2019-03-01 14:46 | OPERATIVE NOTE ---
PROCEDURE DATE: 03/01/2019 PREOPERATIVE DIAGNOSIS: Right ureteropelvic junction area stone with an indwelling right double-J stent. POSTOPERATIVE DIAGNOSIS: Right ureteropelvic junction area stone with an indwelling right double- J stent. PROCEDURES PERFORMED: 1. Right extracorporeal shockwave lithotripsy. 2. Cystoscopic exam. 3. Removal of right double-J stent. ANESTHESIA: General via laryngeal mask. FINDINGS: Fluoroscopic exam revealed an approximate 10 mm right UPJ area stone. Cystoscopic exam: Urethra-greater 21-Vietnamese without stricture. Prostate-coapting lateral lobes, elevated bladder neck, length approximately 4 cm. Bladder-normal ureteral orifices bilaterally with a double-J stent in place on the right side. No papillary lesions noted. INDICATION FOR PROCEDURE: This 58-year-old male had severe right flank pain. A double-J stent was placed. He now presents for shockwave lithotripsy and stent removal. DESCRIPTION OF PROCEDURE: After informed consent was obtained from the patient and him receiving IV antibiotics, he was taken to the main OR and placed in the supine position. General anesthesia via laryngeal mask was achieved. He was then placed in the proper position for right extracorporeal shockwave lithotripsy. The stone received 3000 shocks, starting at energy level 1, ramping to energy level 7 at a frequency of 2 shocks per second. At completion, the stone was well-fragmented. Estimated blood loss 0. Total fluoroscopy time was 1 minute and 32 seconds. He was then placed in the frog-legged position, and prepped and draped in the usual sterile fashion for cystoscopic exam. An [facility] flexible cystoscope was passed through the patient's urethra, prostate, and into the bladder. The flexible graspers were placed and the double-J stent was removed without difficulty. He tolerated the procedures well. Estimated blood loss 0. He was taken to the recovery room in good condition. cc: Ki Pollock MD
== END 2019-03-01 11:34 | disposition home or self-care (01) | DRG 694 ==
LOC: ED 19:49 → 4N 03-01 00:53 → SUATTDRO 03-01 00:53
PROVIDERS: ATTEND Internal Medicine
PROC: UR.ESWL (2019-03-01 06:58)